=== PATIENT | female | born 1945 | race Caucasian/White ===

== ENCOUNTER 2021-09-24 15:47 | Emergency (ER) | payer BC, MEDICARE ==
[2021-09-24] MEDS ORDERED: predniSONE 20 MG TAB PO STA (16:28)
[2021-09-24] MEDS ORDERED: HYDROcodone/APAP 5-325MG 1 EACH TAB PO STA (16:28)
--- NOTE | 2021-09-24 16:39 | ED ---
Back Pain HPI - General Chief Complaint: Back Pain/Injury Stated Complaint: Back Pain Time Seen by Provider: 09/24/21 16:06 Source: patient Limitations: no limitations - History of Present Illness Initial Comments: This is a 76-year-old female who presents to emergency complaining of sharp lower back pain which radiates into the right leg. Pain has been worse over the past 2 weeks. Patient does have chronic back pain. Patient was seen at [facility] 2 weeks ago and had plain film x-rays done which showed arthritis. She was given Tylenol with Codeine. She had back surgery about [address] Quinteros. She states this was done for sciatica. Patient denying any problems with urination or bowel movements. Although she states that her urine is strong smelling and she is getting a slight burning sensation at the urethra. She states she might have a urinary tract infection. Patient has no immunosuppression, no diabetes. No direct trauma. Is able to ambulate. No saddle anesthesia. No history of cancer. Pain sharp, exacerbated by movement, alleviated by rest, radiates into the right leg intermittently. No headache, no fever or chills, no changes in vision or hearing, no sore throat or difficulty with speech, no neck pain, no chest pain or shortness of breath, no abdominal pain, no nausea or vomiting, no changes in urination (other than the aforementioned slight burning) or bowel movements, PATIENT does have int ermittent tingling into the left leg mostly in the sciatic nerve distribution, no extremity pain, no skin rashes or lesions. MD Complaint: back pain Onset/Timin -: week(s) - Related Data Home Medications Medication Instructions Recorded Confirmed lisinopriL [Prinivil] 10 mg PO DAILY 08/27/13 09/02/13 Previous Rx's Medication Instructions Recorded Cefdinir 300 mg PO Q12HR #14 cap 09/24/21 Cyclobenzaprine [Flexeril] 5 mg PO TID PRN #20 tablet 09/24/21 Docusate [Colace] 100 mg PO DAILY #30 capsule 09/24/21 HYDROcodone/APAP 7.5-325MG [Pelzer 1 tab PO Q6HR PRN 3 Days #12 tab 09/24/21 7.5-325] Lidocaine 5% Patch [Lidoderm] 1 patch TOPICAL DAILY #9 patch 09/24/21 Allergies Allergy/AdvReac Type Severity Reaction Status Date / Time No Known Allergies Allergy Verified 09/24/21 15:51 Review of Systems ROS Statement: Those systems with pertinent positive or pertinent negative responses have been documented in the HPI. ROS Other: All systems not noted in ROS Statement are negative. Past Medical History Past Medical History: COPD, Hypertension Additional Past Medical History / Comment(s): migraines, constipation History of Any Multi-Drug Resistant Organisms: None Reported Past Surgical History: Back Surgery, Tubal Ligation Past Anesthesia/Blood Transfusion Reactions: No Reported Reaction Past Psychological History: No Psychological Hx Reported Smoking Status: Never smoker Past Alcohol Use History: None Reported Past Drug Use History: None Reported General Exam Limitations: no limitations General appearance: in distress Head exam: Present: atraumatic, normocephalic, normal inspection Eye exam: Present: normal appearance, PERRL, EOMI. Absent: scleral icterus, conjunctival injection, periorbital swelling ENT exam: Present: normal exam, normal oropharynx, mucous membranes moist, normal external ear exam. Absent: TM's normal bilaterally Neck exam: Present: normal inspection, full ROM. Absent: tenderness, mening ismus, lymphadenopathy Respiratory exam: Present: normal lung sounds bilaterally. Absent: respiratory distress, wheezes, rales, rhonchi, stridor, chest wall tenderness, accessory muscle use, decreased breath sounds, prolonged expiratory Cardiovascular Exam: Present: regular rate, normal rhythm, normal heart sounds. Absent: systolic murmur, diastolic murmur, rubs, gallop, clicks GI/Abdominal exam: Present: soft, normal bowel sounds. Absent: distended, tenderness, guarding, rebound, rigid Extremities exam: Present: normal inspection, full ROM, normal capillary refill. Absent: tenderness, pedal edema, joint swelling, calf tenderness Back exam: Present: normal inspection, tenderness (Right lumbar paraspinal), paraspinal tenderness. Absent: full ROM, CVA tenderness (R), CVA tenderness (L), muscle spasm, vertebral tenderness, rash noted Neurological exam: Present: alert, oriented X3, CN II-XII intact, normal gait, reflexes normal, other (Straight-leg raise is negative bilaterally. Great toe extensor strength is +5 over 5, sensation intact, neurovascular status intact. No evidence of infectious process, no erythema). Absent: abnormal gait, motor sensory deficit Psychiatric exam: Present: normal affect, normal mood Skin exam: Present: warm, dry, intact, normal color. Absent: rash Course Vital Signs 09/24/21 09/24/21 09/24/21 15:49 18:07 18:54 Temperature 98.6 F Pulse Rate 104 H 96 98 Respiratory 20 18 18 Rate Blood Pressure 111/64 122/63 124/64 O2 Sat by Pulse 96 97 96 Oximetry - Reevaluation(s) Reevaluation #1: 09/24/21 17:27 Patient reevaluated. Patient's urinalysis shows evidence of significant urinary tract infection. I did add on blood work, 2 g of ceftriaxone, and a noncontrast CT based on the patient's symptomatology. She was tachycardic on arrival. We'll assess for possible pyelonephritis with sepsis Medical Decision Making - Medical Decision Making Patient presents with acute exacerbation of chronic low back pain. Patient lives in [place] but previously had back surgery done in this town 15 years ago. No symptoms of cauda equina syndrome. Appears to be consistent with right sciatic nerve irritation and possible lumbar radiculopathy. Patient describing some concentrated and foul-smelling urine but has had no fever. -There are no red flags for concerning back pathology. Specifically: -No history of cancer, this is not a mass effect, MRI not indicated. -No anticoagulation, this is not a bleed. -No fevers, no IVDU, this is not an infectious process. -No trauma, no bony pain, x-rays are not indicated--patient had recent plain film x-rays done at another facility -With a normal neuro exam, and no urinary or bowel retention or incontinence, there is no clinical sign of motor defect or cauda equina - MRI is not indicated at this point. -No pulsating abdominal mass or risk factors for AAA. -Pain is relieved with rest, which is also less concerning. -I do not believe that x-rays or emergent MRI is indicated at this time. -We will treat symptomatically and discharge home with follow up instructions. -Stretching/strengthening exercise given to patient and they will be referred to physical therapy Patient does have evidence of urinary tract infection. Patient was afebrile. Patient's lactic acid was normal. Minimal elevation in white blood cell count. Patient did not appear to be systemically ill or septic. We'll treat the patient with antibiotics. She was given 2 g of Rocephin IV piggyback here. I'm going to refrain from giving the patient corticosteroids for her lumbar radiculopathy due to the urinary tract infection. We'll have her follow-up with her primary care physician as soon as possible. She can also recheck with the back specialist at [facility]. All findings discussed with the patient to include lower lung changes and stented gallbladder. All questions answered The case was discussed in detail with ED attending physician. Presentation, findings, treatment plan discussed in detail. Patient was told to return to the ER for any signs or symptoms worsen. Told to return immediately if any other problems arise. All questions answered. Treatment plan discussed. Patient in agreement Every effort has been made to ensure accuracy of this dictation. However, due to the limitations of electronic medical records and dictation devices, errors in charting still occur. Manager Inventory, Dr. Marquez - Lab Data Result diagrams: 09/24/21 18:02 09/24/21 18:02 Lab Results 09/24/21 09/24/21 09/24/21 Range/Units 16:44 18:02 18:02 WBC 11.1 H (3.8-10.6) k/uL RBC 3.70 L (3.80-5.40) m/uL Hgb 12.6 (11.4-16.0) gm/dL Hct 37.7 (34.0-46.0) % MCV 102.0 H (80.0-100.0) fL MCH 34.0 (25.0-35.0) pg MCHC 33.3 (31.0-37.0) g/dL RDW 13.1 (11.5-15.5) % Plt Count 451 H (150-450) k/uL MPV 6.9 Neutrophils % 78 % Lymphocytes % 12 % Monocytes % 4 % Eosinophils % 4 % Basophils % 1 % Neutrophils # 8.6 H (1.3-7.7) k/uL Lymphocytes # 1.3 (1.0-4.8) k/uL Monocytes # 0.5 (0-1.0) k/uL Eosinophils # 0.5 (0-0.7) k/uL Basophils # 0.1 (0-0.2) k/uL Macrocytosis Slight Sodium 135 L (137-145) mmol/L Potassium 3.8 (3.5-5.1) mmol/L Chloride 103 (98-107) mmol/L Carbon Dioxide 22 (22-30) mmol/L Anion Gap 10 mmol/L BUN 40 H (7-17) mg/dL Creatinine 1.06 H (0.52-1.04) mg/dL Est GFR (CKD-EPI)AfAm 58 (>60 ml/min/1.73 sqM) Est GFR (CKD-EPI)NonAf 51 (>60 ml/min/1.73 sqM) Glucose 106 H (74-99) mg/dL Plasma Lactic Acid Tanvir (0.7-2.0) mmol/L Calcium 10.0 (8.4-10.2) mg/dL Total Bilirubin 0.4 (0.2-1.3) mg/dL AST 34 (14-36) U/L ALT 16 (4-34) U/L Alkaline Phosphatase 224 H (38-126) U/L Total Protein 8.2 (6.3-8.2) g/dL Albumin 4.0 (3.5-5.0) g/dL Lipase 55 (23-300) U/L Urine Color Yellow Urine Appearance Turbid H (Clear) Urine pH 6.0 (5.0-8.0) Ur Specific [place] 1.018 (1.001-1.035) Urine Protein 1+ H (Negative) Urine Glucose (UA) Negative (Negative) Urine Ketones Negative (Negative) Urine Blood Large H (Negative) Urine Nitrite Positive H (Negative) Urine Bilirubin Negative (Negative) Urine Urobilinogen <2.0 (<2.0) mg/dL Ur Leukocyte Esterase Large H (Negative) Urine RBC >182 H (0-5) /hpf Urine WBC >182 H (0-5) /hpf Urine WBC Clumps Many H (None) /hpf Ur Squamous Epith Cells 10 H (0-4) /hpf Urine Bacteria Few H (None) /hpf Urine Mucus Rare H (None) /hpf 09/24/21 Range/Units 18:02 WBC (3.8-10.6) k/uL RBC (3.80-5.40) m/uL Hgb (11.4-16.0) gm/dL Hct (34.0-46.0) % MCV (80.0-100.0) fL MCH (25.0-35.0) pg MCHC (31.0-37.0) g/dL RDW (11.5-15.5) % Plt Count (150-450) k/uL MPV Neutrophils % % Lymphocytes % % Monocytes % % Eosinophils % % Basophils % % Neutrophils # (1.3-7.7) k/uL Lymphocytes # (1.0-4.8) k/uL Monocytes # (0-1.0) k/uL Eosinophils # (0-0.7) k/uL Basophils # (0-0.2) k/uL Macrocytosis Sodium (137-145) mmol/L Potassium (3.5-5.1) mmol/L Chloride (98-107) mmol/L Carbon Dioxide (22-30) mmol/L Anion Gap mmol/L BUN (7-17) mg/dL Creatinine (0.52-1.04) mg/dL Est GFR (CKD-EPI)AfAm (>60 ml/min/1.73 sqM) Est GFR (CKD-EPI)NonAf (>60 ml/min/1.73 sqM) Glucose (74-99) mg/dL Plasma Lactic Acid Tanvir 1.0 (0.7-2.0) mmol/L Calcium (8.4-10.2) mg/dL Total Bilirubin (0.2-1.3) mg/dL AST (14-36) U/L ALT (4-34) U/L Alkaline Phosphatase (38-126) U/L Total Protein (6.3-8.2) g/dL Albumin (3.5-5.0) g/dL Lipase (23-300) U/L Urine Color Urine Appearance (Clear) Urine pH (5.0-8.0) Ur Specific [place] (1.001-1.035) Urine Protein (Negative) Urine Glucose (UA) (Negative) Urine Ketones (Negative) Urine Blood (Negative) Urine Nitrite (Negative) Urine Bilirubin (Negative) Urine Urobilinogen (<2.0) mg/dL Ur Leukocyte Esterase (Negative) Urine RBC (0-5) /hpf Urine WBC (0-5) /hpf Urine WBC Clumps (None) /hpf Ur Squamous Epith Cells (0-4) /hpf Urine Bacteria (None) /hpf Urine Mucus (None) /hpf Disposition Clinical Impression: Urinary tract infection, Acute exacerbation of chronic low back pain, Lumbar radiculopathy, right, Lung abnormality Narrative: Enlarged gallbladder Disposition: HOME SELF-CARE Condition: Stable Instructions (If sedation given, give patient instructions): Chronic Back Pain (DC), Lumbar Radiculopathy (ED), Urinary Tract Infection in Women (ED) Additional Instructions: Follow-up with your regular physician as directed. Return to the ER immediately if any symptoms worsen, new symptoms arise, or any other problems develop. Take the antibiotic as directed until it is gone. Make a follow-up appointment with the back specialist. He should also make a follow-up appointment with your regular doctor as soon as possible. Is patient prescribed a controlled substance at d/c from ED?: No Referrals: Jimmy Fajardo DO [Primary Care Provider] - 1-2 days Dottie Quinteros DO [Doctor of Osteopathic Medicine] - 1-2 days Time of Disposition: 19:19
[2021-09-24 17:03] LABS: Appearance,Urine Turbid (Clear); Bacteria,Urine Few /hpf; Bilirubin,Urine Negative (Negative); Blood,Urine Large (Negative); Color,Urine Yellow; Glucose,Urine (UA) Negative (Negative); Ketones,Urine Negative (Negative); Leukocyte Esterase,Urine Large (Negative); Mucus,Urine Rare /hpf; Nitrite,Urine Positive (Negative); Protein,Urine 1+ (Negative); RBC,Urine >182 /hpf (0-5); Specific Gravity,Urine 1.018 (1.001-1.035); Squamous Epithelial Cell,Urine 10 /hpf (0-4); Urobilinogen,Urine <2.0 mg/dL (<2.0); WBC,Urine >182 /hpf (0-5)
[2021-09-24] MEDS ORDERED: SODIUM CHLORIDE 0.9% 1,000 ML IV STA (17:26)
[2021-09-24] MEDS ORDERED: ONDANSETRON 4 MG/2 ML VIAL IVP STA (18:13)
[2021-09-24] MEDS ORDERED: HYDROmorphone 1 MG/ML 1 ML SYRINGE IVP STA (18:13)
--- NOTE | 2021-09-24 18:13 | CT ---
EXAMINATION TYPE: CT abdomen pelvis wo con DATE OF EXAM: 09/24/2021 COMPARISON: 07/25/2009 HISTORY: lower back pain/R flank pain and uti CT DLP: 531.7 mGycm Automated exposure control for dose reduction was used. Images obtained from the diaphragm to the floor the pelvis with no contrast. There is some mild reticular nodular infiltrate at the lung bases bilaterally. No pleural effusion. H eart size is normal. No pericardial effusion. Liver is intact. There are numerous calcified splenic granulomata. There is no pancreatic mass. There are numerous small calcified gallstones. Gallbladder is distended. The bile ducts are not dilated. There is no adrenal mass. Kidneys show normal size and contour. No hydronephrosis. Ureters are not di lated. There is no retroperitoneal adenopathy. The bladder distends smoothly. No inguinal hernia. No free fluid in the pelvis. There is no mesenteric edema. No ascites or free air. No sign of bowel obstruction. There is posterio r fusion surgery in the lumbar spine from L4 to S1. There is metal artifact. Uterus is anteverted. No pelvic mass. No free fluid in the pelvis. Appendix not clearly seen. No sign of thickened appendix. Bladder distends smoothly. The bony pelvis is intact. Hip joints are intact. There is a slight thoracolumbar dextroscoliosis. IMPRESSION: Reticulonodular pulmonary interstitial infiltrates are likely inflammatory. Lung disease is mostly ne w compared to the old exam. Old granulomatous disease. Cholelithiasis. No evidence of renal stone or obstruction. Gallbladder is large and measures 4.3 cm. This is consistent with gallbladder dysfunction.
[2021-09-24 18:26] LABS: Basophils # (A) 0.1 k/uL (0-0.2); Basophils % (A) 1 %; Eosinophils # (A) 0.5 k/uL (0-0.7); Eosinophils % (A) 4 %; HCT 37.7 % (34.0-46.0); HGB 12.6 gm/dL (11.4-16.0); Lymphocytes # (A) 1.3 k/uL (1.0-4.8); Lymphocytes % (A) 12 %; MCHC 33.3 g/dL (31.0-37.0); Macrocytosis Slight; Mean Platelet Volume 6.9; Monocytes # (A) 0.5 k/uL (0-1.0); Monocytes % (A) 4 %; Neutrophils # (A) 8.6 k/uL (1.3-7.7); Neutrophils % (A) 78 %; Platelet Count 451 k/uL (150-450); RDW 13.1 % (11.5-15.5); WBC 11.1 k/uL (3.8-10.6)
[2021-09-24 18:34] LABS: Potassium 3.8 mmol/L (3.5-5.1); Total Bilirubin 0.4 mg/dL (0.2-1.3); Total Protein 8.2 g/dL (6.3-8.2)
[2021-09-24 20:13] VITALS: BP 133/83; PULSE 81; RESP 20; TEMP 98.4
== END 2021-09-24 19:55 | disposition home or self-care (01) ==
LOC: EC 15:47
DX: N39.0 Urinary tract infection, site not specified (principal); M54.16 Radiculopathy, lumbar region; R94.2 Abnormal results of pulmonary function studies; I10 Essential (primary) hypertension; J44.9 Chronic obstructive pulmonary disease, unspecified; Z79.899 Other long term (current) drug therapy
CPT/HCPCS: 36415; 80053; 83605; 83690; 85025; 81001; 87040; 87086; 87077; 87186; 74176; 99284; 96365; 96375; J2405; J0696; J1170; J7512